=== PATIENT | female | born 1995 | race Caucasian/White ===

== ENCOUNTER 2018-01-01 14:50 | Emergency (ER) | payer OTHER, SELFPAY ==
[2018-01-01] MEDS ORDERED: Bupivacaine 0.5% 10 ML VIAL ONE (15:26)
--- NOTE | 2018-01-01 16:01 | RAD ---
RADIOGRAPH LEFT SECOND DIGIT 3 VIEWS: 01/01/18 HISTORY: 22-year-old female status post acute penetrating trauma to the index finger from dog bite. FINDINGS: There is shallow soft tissue defect in the region of the fingernail bed seen on the lateral view. No fracture or any other osseous abnormality is identified. No dislocation. No radiopaque foreign body. IMPRESSION: 1. Superficial soft tissue injury at the fingernail bed of the second digit. 2. Otherwise negative. POS: [facility]
== END 2018-01-01 16:38 | disposition home or self-care (01) ==
LOC: NAV ERS 14:50
DX: S61.311A Laceration without foreign body of left index finger with damage to nail, initial encounter (principal); K21.9 Gastro-esophageal reflux disease without esophagitis; F41.9 Anxiety disorder, unspecified; W54.0XXA Bitten by dog, initial encounter
CPT/HCPCS: 11760; J3490

== ENCOUNTER 2018-01-10 09:39 | Emergency (ER) | payer SELFPAY | END 2018-01-10 10:30 | disposition home or self-care (01) | LOC: NAV ERS 09:39 | DX: S61.211D Laceration without foreign body of left index finger without damage to nail, subsequent encounter (principal); F41.9 Anxiety disorder, unspecified; K58.9 Irritable bowel syndrome, unspecified; Z79.899 Other long term (current) drug therapy ==